=== PATIENT | female | born 2000 | race Two or more races ===

== ENCOUNTER → 2019-01-19 | Outpatient (CLI) | payer OTHER | END | disposition home or self-care (01) | LOC: RAD 15:07 | DX: M41.125 Adolescent idiopathic scoliosis, thoracolumbar region (principal) ==

== ENCOUNTER 2019-08-18 08:01 | Outpatient (CLI) | payer OTHER | END 2019-08-18 08:03 | disposition home or self-care (01) | LOC: RAD 08:01 | PROVIDERS: ATTEND Orthopaedic Surgery | DX: M41.125 Adolescent idiopathic scoliosis, thoracolumbar region (principal) ==

== ENCOUNTER 2019-10-04 11:41 | Outpatient (CLI) | payer OTHER | END 2019-10-04 11:45 | disposition home or self-care (01) | LOC: RAD 11:41 | PROVIDERS: ATTEND Orthopaedic Surgery | DX: M41.125 Adolescent idiopathic scoliosis, thoracolumbar region (principal) ==

== ENCOUNTER → 2020-04-20 | Outpatient (CLI) | payer OTHER | END | disposition home or self-care (01) | LOC: RAD 09:33 | PROVIDERS: ATTEND Orthopaedic Surgery | DX: M43.8X5 Other specified deforming dorsopathies, thoracolumbar region (principal); M41.125 Adolescent idiopathic scoliosis, thoracolumbar region ==

== ENCOUNTER 2024-05-21 10:23 | Outpatient (CLI) | payer OTHER | END 2024-05-21 10:32 | disposition home or self-care (01) | LOC: RAD 10:23 | PROVIDERS: ATTEND Orthopaedic Surgery | DX: M41.125 Adolescent idiopathic scoliosis, thoracolumbar region (principal) ==

== ENCOUNTER 2024-06-18 09:56 | Outpatient (CLI) | payer OTHER | END 2024-06-18 10:00 | disposition home or self-care (01) | LOC: MRI 09:56 | PROVIDERS: ATTEND Orthopaedic Surgery | DX: M54.50 Low back pain, unspecified (principal) | CPT/HCPCS: 72148 ==